=== PATIENT | female | born 1995 | race Caucasian/White ===

== ENCOUNTER 2016-09-27 18:12 | Emergency (ER) | payer OTHER ==
[~2016-09-27] VITALS: Ht 157.5 cm; Wt 56.7 kg
--- NOTE | ~2016-09-27 | EKG ---
[address] [address] ELECTROCARDIOGRAM REPORT Name: ALE THOMSON Room #: DEP [facility]#: [id number] Admission: 09/27/16 Attend Phys: Discharge: 09/27/16 Date of : [birth year] Report #: [id number] THIS REPORT FOR: //name// [facility] ED Test Date: 2016-09-27 Test Time: 18:58:51 Pat Name: ALE THOMSON Department: Room: Gender: F [employer] Attendant: braxton : 1995 Requested By: Arley Baldwin Order Number: [id number] MD: Diogenes Polanco Measurements Intervals [place] Rate: 79 P: 36 CO: 180 QRS: 74 QRSD: 100 T: 10 QT: 434 QTc: 498 Interpretive Statements Sinus rhythm Prolonged QT interval No previous ECG available for comparison Electronically Signed On 09-28-2016 8:56:45 [employer] by Diogenes Polanco [email or web address] <ELECTRONICALLY SIGNED> By: Diogenes Polanco MD, [facility] 09/28/16 [id number] 1858 Diogenes Polanco MD, FACC /EPI
[2016-09-27] MEDS ORDERED: VENTOLIN HFA 1818 GM INH (18:27)
[2016-09-27 19:45] LABS: TROPONIN-I < 0.04 ng/mL (<0.04-0.07)
[2016-09-27] MEDS ORDERED: ROBAXIN500 MG PO (19:48)
[2016-09-27] MEDS ORDERED: NAPROSYN500 MG PO (19:48)
[2016-09-27 19:58] VITALS: BP 107/83
== END 2016-09-27 19:59 | disposition home or self-care (01) ==
LOC: ER 18:12
PROVIDERS: Emergency Medicine
DX: M43.6 Torticollis (principal); R09.1 Pleurisy; J45.909 Unspecified asthma, uncomplicated